=== PATIENT | female | born 1995 | race African-American/Black ===

== ENCOUNTER 2018-02-07 11:06 | Observation (INO) | payer MEDICAID ==
[~2018-02-07] VITALS: Ht 160 cm; Wt 71.2 kg
[2018-02-07] MEDS ORDERED: PNV1TABL76 PO (11:42)
[2018-02-07] MEDS ORDERED: LACTATED RINGERS 1,000 ML IV SCH (11:45)
[2018-02-07 12:08] LABS: CLARITY URINE CLEAR (CLEAR); COLOR URINE YELLOW (YELLOW); KETONES URINE 1+ (NEGATIVE); LEUKOCYTE ESTERASE URINE 2+ (NEGATIVE); NITRITE URINE NEGATIVE (NEGATIVE); OCCULT BLOOD URINE NEGATIVE (NEGATIVE); PH URINE 6.5 (4.5-8.0); PROTEIN URINE NEGATIVE (NEGATIVE); SPECIFIC GRAVITY URINE 1.018 (1.005-1.030)
[2018-02-07] MEDS ORDERED: CEFAZOLIN 1000MG PREMIX 50 ML IV NR (13:00)
[2018-02-07] MEDS ORDERED: DEXT 5%/LACTATED RINGERS 1,000 ML IV ONE (13:00)
== END 2018-02-07 13:45 | disposition home or self-care (01) ==
LOC: L&D 11:06
PROVIDERS: ADMIT Obstetrics & Gynecology; ATTEND Obstetrics & Gynecology
DX: O26.893 Other specified pregnancy related conditions, third trimester (principal); R10.30 Lower abdominal pain, unspecified; R10.2 Pelvic and perineal pain; Z3A.36 36 weeks gestation of pregnancy
CPT/HCPCS: 81003; 96361; 96365; 99281; G0378; J0690; J7120; 96360